=== PATIENT | female | born 1950 | race Caucasian/White ===

== ENCOUNTER 2017-09-26 15:08 | Observation (INO) | payer MEDICARE ==
[2017-09-26 16:03] LABS: #Basophils 0.1 thou/uL (0.0-0.2); #Eosinphils 0.1 thou/uL (0.0-0.7); #Lymphocytes 1.6 thou/uL (1.20-3.40); #Monocytes 0.7 thou/uL (0.11-0.59); #Neutrophils 5.7 thou/uL (1.40-6.50); %Basophils 1.1 % (0.0-1.0); %Eosinophils 1.7 % (0.0-10.0); %Lymphocytes 19.2 % (21.0-51.0); %Monocytes 8.4 % (0.0-10.0); %Neutrophils 69.7 % (42.0-75.0); Hemoglobin 13.1 g/dL (12.0-16.0); Mean Corpuscular HGB CONC 34.1 g/dL (32.0-36.0); Mean Corpuscular Hemoglobin 30.7 pg (27.0-31.0); Mean Corpuscular Volume 90.1 fl (81.0-99.0); Mean Platelet Volume 7.6 fL (7.4-10.4); Platelet Count 245 thou/uL (130-400); RBC Distribution Width 11.2 % (11.5-14.5); Red Blood Cell (RBC) Count 4.28 mill/uL (4.20-5.40); White Blood Cell (WBC) Count 8.2 thou/uL (4.8-10.8)
[2017-09-26 16:21] LABS: ALT (SGPT) 26 U/L (8-55); AST (SGOT) 18 U/L (5-34); Albumin 3.9 g/dL (3.4-4.8); Alkaline Phosphatase 74 U/L (40-150); Anion Gap 13 mmol/L (10-20); BUN (Urea Nitrogen) 17 mg/dL (9.8-20.1); Bilirubin, Total 0.7 mg/dL (0.2-1.2); Calc. Creatinine Clearance 0 mL/min (70-130); Calcium 9.6 mg/dL (7.8-10.44); Carbon Dioxide 26 mmol/L (23-31); Chloride 105 mmol/L (98-107); Estimated GFR-MDRD 75; Globulin 2.9 g/dL (2.4-3.5); Glucose 120 mg/dL (80-115); Lipase 18 U/L (8-78); Potassium 3.9 mmol/L (3.5-5.1); Protein, Total 6.8 g/dL (6.0-8.3); Sodium 140 mmol/L (136-145)
[2017-09-26 16:22] LABS: CKMB 1.1 ng/mL (0-6.6); Troponin I Less than 0.010 ng/mL (< 0.028)
--- NOTE | 2017-09-26 16:22 | CT ---
CT HEAD NONCONTRAST: History: Altered mental status. FINDINGS: No comparison. There is no evidence of acute intracranial hemorrhage or infarct. Mild chronic ischemic small vessel disease and diffuse cortical atrophy are apparent. There is no mass effect or shift of midline struct ures. Calcification in the arterial structures at the brain base. Visualized paranasal sinuses remain well aerated. IMPRESSION: Atherosclerosis. No acute intracranial abnormalities are demonstrated. POS: [facility]
--- NOTE | 2017-09-26 16:23 | RAD ---
CHEST ONE VIEW: History: Dyspnea. FINDINGS: Cardiac silhouette magnified by projection. Pulmonary vasculature are upper limits of normal. Mediast inum midline with aortic calcification. No lobar consolidation or evidence of pneumothorax. IMPRESSION: 1. Borderline pulmonary vascular congestion. 2. Atherosclerosis. POS: [facility]
[2017-09-26 16:32] LABS: Bilirubin Negative (Negative); Blood, Urine Negative (Negative); Clarity Slightly Cloudy (Clear); Glucose, Urine (Dipstick) Negative (Negative); Leukocyte Trace (Negative); Nitrite Negative (Negative); Protein, Urine (Dipstick) Negative (Neg-Trace); Urobilinogen 0.2 mg/dL (0.2-1.0)
[2017-09-26 16:37] LABS: Bacteria/HPF None Seen HPF (None Seen); RBC/HPF 0-3 HPF (0-3); Squamous Epithelial 0-3 HPF (0-3); WBC/HPF 0-3 HPF (0-3)
[2017-09-26] MEDS ORDERED: Sodium Chloride 0.9% 1,000 ML IV SCH ×2 (18:23→19:45)
[2017-09-26] MEDS ORDERED: Ondansetron ODT 4 MG TAB SL PRN (18:23)
[2017-09-26] MEDS ORDERED: Ondansetron HCl/PF 4 MG/2 ML Vial IVP PRN (18:23)
[2017-09-26] MEDS ORDERED: Guaifenesin DM 100-10/5 ML UDCUP PO PRN (19:23)
[2017-09-26] MEDS ORDERED: Acetaminophen 325 MG TAB PO PRN (19:23)
[2017-09-26] MEDS ORDERED: FLURAZEPAM HCL 30 MG PO PRN (19:23)
[2017-09-26] MEDS ORDERED: Carvedilol 25 MG TAB PO SCH (20:00)
[2017-09-26] MEDS ORDERED: Atorvastatin Calcium 20 MG TAB PO SCH (21:00)
[2017-09-26] MEDS ORDERED: TROSPIUM 20 MG TABLET PO SCH (21:00)
[2017-09-26] MEDS: Pregabalin 75 MG CAP PO SCH (22:44)
[2017-09-26] MEDS: Famotidine 20 MG TAB PO SCH (22:45)
[2017-09-26] MEDS: traMADol HCl 50 MG TAB PO PRN (22:54)
--- NOTE | 2017-09-26 23:13 | HP ---
REASON FOR ADMISSION: TIA. HISTORY OF PRESENTING ILLNESS: The patient gives history of getting ready to come back from [place]. They had gone there over the weekend. She was packing her stuff and was feeling disoriented. She was trying to locate her cell phone multiple times. She was also stumbling. Words were difficult to articulate. She also felt like her tongue was thick. She told all this to her and finally they ate their breakfast. They managed to come here and reached home and the patient slept. The could not wake her up. The patient felt like as though she was medicated. As none of this seemed normal for her, the patient was brought to [facility] Emergency Room. The patient also states that she had some tingling on her cheeks and was feeling flushed. No complaints of fever, cough, or expectoration. No complaints of chest pain, palpitation, PND or orthopnea. Upon arrival in [facility] ER, all her symptoms got resolved. The patient does not take aspirin. PAST MEDICAL AND SURGICAL HISTORY: Hypertension, dyslipidemia, bilateral knee replacement, bilateral rotator cuff surgery, tubal ligation, and tonsillectomy. CURRENT MEDICATIONS: Lyrica 100 mg 3 times daily, Ultram p.r.n. for pain, simvastatin 40 mg at bedtime, Coreg 12.5 mg twice daily, spironolactone daily. ALLERGIES: HYDROCODONE. PERSONAL HISTORY: Does not abuse alcohol or drugs. No history of smoking. FAMILY HISTORY: Mother of old age at the age of 87 years, she has had history of dementia. Father at the age of 75 years, he has had end-stage renal disease, hypertension. 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 CODE STATUS: FULL. Power of civil rights attorney is her . REVIEW OF SYSTEMS: The following complete review of systems was negative, unless otherwise mentioned in the HPI or below: Constitutional: Weight loss or gain, ability to conduct usual activities. Skin: Rash, itching. Eyes: Double vision, pain. ENT/Mouth: Nose bleeding, neck stiffness, pain, tenderness. Cardiovascular: Palpitations, dyspnea on exertion, orthopnea. Respiratory: Shortness of breath, wheezing, cough, hemoptysis, fever or night sweats. Gastrointestinal: Poor appetite, abdominal pain, heartburn, nausea, vomiting, constipation, or diarrhea. Genitourinary: Urgency, frequency, dysuria, nocturia. Musculoskeletal: Pain, swelling. Neurologic/Psychiatric: Anxiety, depression. Allergy/Immunologic: Skin rash, bleeding tendency. PHYSICAL EXAMINATION: GENERAL: The patient is a 66-year-old female, who is currently not in any acute distress. VITAL SIGNS: Blood pressure 131/74, pulse 64 per minute, respiratory rate 18 per minute, temperature 98.2 degrees Fahrenheit, saturating 95% on room air. NECK: Supple, no elevated JVD. HEENT: Eyes: Extraocular muscles intact. Pupils are reacting to light. Oral cavity, mucous membranes are moist. No exudates or congestion. CARDIOVASCULAR SYSTEM: S1, S2 heard. Regular rhythm. RESPIRATORY SYSTEM: Air entry 2+ bilateral. No rales or rhonchi. ABDOMEN: Soft, bowel sounds heard. No tenderness, rigidity or guarding. EXTREMITIES: No peripheral edema or calf tenderness. VASCULAR SYSTEM: Peripheral pulses 1+ bilateral, no ischemic ulcerations or gangrene. CENTRAL NERVOUS SYSTEM: No gross focal deficits seen. Cranial nerves are intact. Motor system strength is 5/5, reflexes are 2+ bilateral. Babinski is downgoing. Cerebellar signs are intact. Gait was not tested. PSYCHIATRIC SYSTEM: The patient's mood is euthymic. No hallucinations or delusions. LABORATORY AND X-RAY FINDINGS: White count of 8.2, H&H 13 and 38, platelet count is 245, MCV is 90 with 69% neutrophils. Electrolytes are stable. BUN 17 , creatinine 0.7, serum glucose 120. Liver enzymes are within normal limits. Cardiac enzymes x1 is negative. Albumin is 3.9. Lipase is 18. CT brain shows no acute intracranial abnormalities. There are signs of atherosclerosis seen. Chest x-ray shows mild cardiomegaly; otherwise no acute infiltrate by my review. EKG done shows normal sinus rhythm at 60 beats per minute. CLINICAL IMPRESSION AND PLAN: The patient will be under observation on the stroke unit for possible transient ischemic attack. All her symptoms that appeared in the morning are resolved at present. We will continue her on aspirin, her home dose of Coreg, simvastatin as before. Echo with 2D Doppler for LV function will be obtained and an ultrasound of the carotids will be obtained. The patient is severely claustrophobic and will not ask for MRI unless clinical signs warrant. We will also obtain lipid profile in the morning. We will continue to closely monitor her on the stroke unit. The patient can be safely discharged in the morning if she remains neurologically stable. MTDD
[2017-09-27 05:02] VITALS: BMI 32.2
[2017-09-27 05:10] LABS: Anion Gap 10 mmol/L (10-20); BUN (Urea Nitrogen) 16 mg/dL (9.8-20.1); Calc. Creatinine Clearance 117 mL/min (70-130); Calcium 9.3 mg/dL (7.8-10.44); Carbon Dioxide 27 mmol/L (23-31); Cardiac Risk 3.7 (Less than 4.5); Chloride 109 mmol/L (98-107); Cholesterol 160 mg/dl (< 200 Desired); Estimated GFR-MDRD 83; Glucose 100 mg/dL (80-115); HDL Cholesterol 43 mg/dL (>60 Neg Risk); LDL Cholesterol, Calculated 74 mg/dL; Potassium 3.4 mmol/L (3.5-5.1); Sodium 143 mmol/L (136-145); Triglycerides 215 mg/dL (Less than 150)
[2017-09-27 05:12] LABS: #Eosinphils 0.2 thou/uL (0.0-0.7); #Lymphocytes 1.9 thou/uL (1.20-3.40); #Monocytes 0.7 thou/uL (0.11-0.59); #Neutrophils 4.5 thou/uL (1.40-6.50); %Basophils 0.5 % (0.0-1.0); %Eosinophils 2.7 % (0.0-10.0); %Lymphocytes 26.6 % (21.0-51.0); %Monocytes 8.9 % (0.0-10.0); %Neutrophils 61.4 % (42.0-75.0); Hemoglobin 12.3 g/dL (12.0-16.0); Mean Corpuscular Hemoglobin 31.2 pg (27.0-31.0); Mean Corpuscular Volume 91.9 fl (81.0-99.0); Mean Platelet Volume 7.1 fL (7.4-10.4); Platelet Count 220 thou/uL (130-400); RBC Distribution Width 11.1 % (11.5-14.5); Red Blood Cell (RBC) Count 3.94 mill/uL (4.20-5.40); White Blood Cell (WBC) Count 7.3 thou/uL (4.8-10.8)
--- NOTE | 2017-09-27 07:49 | ULT ---
CAROTID ARTERIAL DOPPLER ULTRASOUND: DATE: 09/27/17. COMPARISON: None. HISTORY: Gait unsteadiness, assess for carotid artery disease. TECHNIQUE: Multiplanar, garcia scale sonographic imaging of the arterial structures of the neck obtained with colo r flow and spectral analysis. FINDINGS: Scattered areas of atherosclerotic plaque noted in distal CCA and proximal ICA bilaterally. Incidental note is made of a 6-7 mm hypoechoic solid nodule within the left lobe of the thyroid gland . Antegrade blood flow and normal arterial waveforms are documented within the parotid and vertebral sy stem bilaterally. VESSEL PSV(CM/S) EDV(CM/S) Right CCA 85 9 Right ICA 93 26 Right ECA 52 7 Left CCA 114 20 Left ICA 78 18 Left ECA 64 16 ICA/CCA ratio is 1.1 on the right and 0.7 on the left. IMPRESSION: No hemodynamically significant stenosis on the basis of sonographic velocity criteria. POS: [facility]
[2017-09-27] MEDS ORDERED: Carvedilol 25 MG TAB PO SCH (08:00)
[2017-09-27] MEDS ORDERED: Potassium Chloride 20 MEQ TAB PO SCH (08:00)
[2017-09-27] MEDS ORDERED: Enoxaparin Sodium 40 MG/0.4 ML SYRINGE SC SCH (09:00)
[2017-09-27] MEDS ORDERED: Aspirin 325 mg Enteric Coated Tablet PO SCH (09:00)
[2017-09-27] MEDS: Famotidine 20 MG TAB PO SCH (09:02)
[2017-09-27] MEDS: Pregabalin 75 MG CAP PO SCH ×2 (09:03→14:05)
[2017-09-27] MEDS: traMADol HCl 50 MG TAB PO PRN (10:03)
--- NOTE | 2017-09-27 11:44 | PDOC.PN ---
- Subjective Encounter Start Date: 09/27/17 Encounter Start Time: 11:46 Patient seen and examined following admission for TIA. She has no complaints and feels well. No acute events overnight. - Objective Resuscitation Status: Resuscitation Status FULL:Full Resuscitation Vital Signs & Weight: Vital Signs (12 hours) Temp Pulse Resp BP Pulse Ox 09/27/17 09:03 97.6 F 69 16 09/27/17 08:00 97.6 F 69 16 182/87 H 95 09/27/17 04:00 98.3 F 65 18 148/69 H 96 09/26/17 23:52 97.8 F 72 18 174/84 H 98 Weight Weight 212 lb I&O: 09/26/17 09/27/17 09/28/17 06:59 06:59 06:59 Intake Total 1080 240 Balance 1080 240 Result Diagrams: 09/27/17 04:09 09/27/17 04:09 Phys Exam - Physical Examination Constitutional: NAD HEENT: moist MMs, sclera anicteric, oral pharynx no lesions Neck: supple, full ROM Respiratory: no wheezing, no rales, no rhonchi, clear to auscultation bilateral Cardiovascular: RRR, no significant murmur, no rub Gastrointestinal: soft, non-tender, no distention, positive bowel sounds Musculoskeletal: no edema, pulses present Neurological: non-focal, moves all 4 limbs Psychiatric: normal affect, A&O x 3 Skin: no rash, normal turgor Dx/Plan (1) TIA (transient ischemic attack) Status: Acute Qualifiers: Transient cerebral ischemia type: unspecified Qualified Code(s): G45.9 - Transient cerebral ischemic attack, unspecified Comment: Patient back to baseline. Will f/u ECHO and Doppler US. (2) HTN (hypertension) Code(s): I10 - ESSENTIAL (PRIMARY) HYPERTENSION Status: Acute Qualifiers: Hypertension type: essential hypertension Qualified Code(s): I10 - Essential (primary) hypertension (3) HLD (hyperlipidemia) Code(s): E78.5 - HYPERLIPIDEMIA, UNSPECIFIED Status: Acute Qualifiers: Hyperlipidemia type: pure hyperglyceridemia Qualified Code(s): E78.1 - Pure hyperglyceridemia - Plan cont current plan of care, PT/OT, out of bed/ambulate, DVT proph w/lovenox * . Review of Systems - Medications/Allergies Allergies/Adverse Reactions: Allergies Allergy/AdvReac Type Severity Reaction Status Date / Time hydrocodone Allergy Verified 09/26/17 20:48 Medications: Current Medications Acetaminophen (Tylenol) 650 mg PO Q4H PRN PRN Reason: Headache/Fever or Pain Aspirin (Ecotrin) 325 mg PO DAILY [facility] Last Admin: 09/27/17 09:02 Dose: 325 mg Atorvastatin Calcium (Lipitor) 20 mg PO [facility] Last Admin: 09/26/17 22:46 Dose: 20 mg [facility] Admin: 09/27/17 09:03 Dose: 12.5 mg Enoxaparin Sodium (Lovenox) 40 mg SC 0900 [facility] Last Admin: 09/27/17 09:02 Dose: 40 mg Famotidine (Pepcid) 20 mg PO BID [facility] Last Admin: 09/27/17 09:02 Dose: 20 mg Guaifenesin/Dextromethorphan (Robitussin Dm) 15 ml PO Q4H PRN PRN Reason: Cough Sodium Chloride (Normal Saline 0.9%) 1,000 mls @ 60 mls/hr IV .[id number] [facility] Stop: 09/27/17 12:24 Last Admin: 09/26/17 22:46 Dose: 1,000 mls (Flurazepam Hcl [ Flurazepam Hcl] 30 Mg) 30 each PO HSPRN PRN PRN Reason: Sedation Potassium Chloride (K-Dur) 40 meq PO BID-[facility] Stop: 09/28/17 08:01 Last Admin: 09/27/17 09:02 Dose: 40 meq Pregabalin (Lyrica) 150 mg PO TID [facility] Last Admin: 09/27/17 09:03 Dose: 150 mg Tramadol HCl (Ultram) 50 mg PO TIDPRN PRN PRN Reason: Moderate Pain (4-6) Last Admin: 09/27/17 10:03 Dose: 50 mg Trospium (Trospium) 20 mg PO [facility] Last Admin: 09/26/17 22:46 Dose: 20 mg
[2017-09-27 15:52] VITALS: BP 170/86; TEMP 98.2
--- NOTE | 2017-09-28 03:14 | DIS ---
DATE OF ADMISSION: 09/26/2017 DATE OF DISCHARGE: 09/27/2017 DISCHARGE DIAGNOSES: Transient ischemic attack, hypertension, and hyperlipidemia. HISTORY OF PRESENT ILLNESS AND HOSPITAL COURSE: Ms. Gali Satnos is a 66-year-old female with a past medical history of hypertension and hyperlipidemia, who presented to the hospital due to difficulty a mbulating. She reported that she was getting ready to go back from [place] over the weekend and whil e packing the stuff she was feeling disoriented. She is trying to locate her cell phone multiple true es. She was also stumbling and had difficult to articulate words. She also felt her tongue was thic k and unable to properly pronounced words and the was having difficulty arousing the patient and then brought her to the emergency room at [facility]. There was no history of fever o r cough, expectoration, chest pain, palpitation, PND, or orthopnea. On arrival at the [facility] ER, her symptoms had resolved and the patient was back to her baseline. She was admitted for TIA/[facility]. CT of her brain was negative. Chest x-ray was unremarkable and a carotid Doppler ultrasound edbi wed no hemodynamically significant stenosis. She also had a TTE done and the results are currently p ending. She was discharged on aspirin and statin for secondary prevention. DISCHARGE MEDICATIONS: Aspirin 325 mg daily, atorvastatin 20 mg at bedtime, carvedilol 12.5 mg b.i.d ., levomefolate 1 capsule daily, Lifitegrast 1 b.i.d., mirabegron 25 mg tablet at bedtime, pregabalin 150 mg t.i.d., tizanidine 4 mg daily, tramadol 50 mg q.8 hours p.r.n. PHYSICAL EXAMINATION: She was seen and examined on the day of discharge. VITAL SIGNS: Blood pressure 140/72, oxygen saturation 95% on room, respiratory rate 16, pulse rate 7 7, temperature 99.1 degrees Fahrenheit. For full details, see today's progress notes. LABORATORY DATA: WBC 7.3, hemoglobin 12.3, platelet count 220. Sodium 143, potassium 3.4, chloride 109, carbon dioxide 27, anion gap 10, BUN 15, creatinine 0.7. IMAGING: Carotid Doppler study, echocardiogram, brain CT, chest x-ray was reported in HPI. CONSULTATIONS: None. CONDITION AT DISCHARGE: Stable and improved. PROCEDURES: None. DIET: Heart healthy. CARE GOALS: To follow up with her primary care physician within 1 week of discharge. ACTIVITY: To resume as tolerated. DISCHARGE TIME: 55 minutes including chart review and documentation.
== END 2017-09-27 16:16 | disposition home or self-care (01) ==
LOC: SCSER 15:08 → 2SE 16:51
PROVIDERS: ADMIT Internal Medicine; ATTEND Internal Medicine
DX: G45.9 Transient cerebral ischemic attack, unspecified (principal); I10 Essential (primary) hypertension; E78.5 Hyperlipidemia, unspecified; Z79.899 Other long term (current) drug therapy; Z88.5 Allergy status to narcotic agent
CPT/HCPCS: 70450; 71045; 80048; 80053; 80061; 82553; 82962; 83690; 84484; 85025 ×2; 93005; 93306; 93880; 96372; 97139; 99285; G0378; G8978; G8979; G8980; 36415; 36416; 81003; 81015; J1650

== ENCOUNTER 2019-10-11 14:37 | Outpatient (CLI) | payer MEDICARE ==
--- NOTE | 2019-10-11 15:04 | MMO ---
Bilateral MAMMO Bilat Screen [facility]. CLINICAL HISTORY: Patient is 68 years old and is seen for screening. The patient has no family history of breast cancer. The patient has no personal history of cancer. The patient has a history of left Excisional Biopsy at age 38 - benign. VIEWS: The views performed were: bilateral craniocaudal with tomosynthesis and bilateral mediolateral oblique with tomosynthesis. FILMS COMPARED: The present examination has been compared to prior imaging studies performed at [facility] on 08/29/2013, 05/06/2015, 09/02/2016 and 02/01/2018. This study has been interpreted with the assistance of computer-aided detection. MAMMOGRAM FINDINGS: There are scattered fibroglandular densities. There are no suspicious masses, suspicious calcifications, or new areas of architectural distortion. IMPRESSION: THERE IS NO MAMMOGRAPHIC EVIDENCE OF MALIGNANCY. A ROUTINE FOLLOW-UP MAMMOGRAM IN 1 YEAR IS RECOMMENDED. THE RESULTS OF THIS EXAM WERE SENT TO THE PATIENT. ACR BI-RADS Category 1 - Negative MAMMOGRAPHY NOTE: 1. A negative mammogram report should not delay a biopsy if a dominant of clinically suspicious mass is present. 2. Approximately 10% to 15% of breast cancers are not detected by mammography. 3. Adenosis and dense breasts may obscure an underlying neoplasm. Reported by: AUGUSTUS GENAO MD Electonically Signed: [id number]
== END 2019-10-11 14:38 | disposition home or self-care (01) ==
LOC: BICMAMMO 14:37
PROVIDERS: ATTEND Obstetrics & Gynecology
DX: Z12.31 Encounter for screening mammogram for malignant neoplasm of breast (principal); Z91.89 Other specified personal risk factors, not elsewhere classified
CPT/HCPCS: 77063; 77067

== ENCOUNTER 2024-11-27 11:34 | Outpatient (CLI) | payer MEDICARE | END 2024-11-27 11:35 | disposition home or self-care (01) | LOC: BICMAMMO 11:34 | PROVIDERS: ATTEND Internal Medicine | DX: Z12.31 Encounter for screening mammogram for malignant neoplasm of breast (principal); Z80.3 Family history of malignant neoplasm of breast; Z91.89 Other specified personal risk factors, not elsewhere classified | CPT/HCPCS: 77063; 77067 ==